=== PATIENT | male | born 1955 ===

== ENCOUNTER 2023-04-15 05:04 | Day surgery (SDC) | payer OTHER ==
[2023-04-10 18:09] VITALS: BMI 24.7
[~2023-04-15 05:04] MED LIST: ceFAZolin SODIUM 1 GM VIAL IVPB ONE
[2023-04-15] MEDS ORDERED: ELECTROLYTE-148 SOLN 1,000 ML IV SCH (10:30)
[2023-04-15] MEDS ORDERED: PROPOFOL 20 ML ONE (10:38)
[2023-04-15] MEDS ORDERED: MIDAZOLAM HCL 2 MG/2 ML SINGLE DOSE VIAL ONE (10:38)
[2023-04-15] MEDS ORDERED: GLYCOPYRROLATE 0.2 MG/1 ML VIAL ONE (10:46)
[2023-04-15] MEDS ORDERED: ceFAZolin SODIUM 1 GM VIAL IVPB ONE (10:50)
[2023-04-15] MEDS ORDERED: ceFAZolin SODIUM 1 GM VIAL ONE (10:50)
[2023-04-15] MEDS ORDERED: ONDANSETRON 4 MG/2 ML VIAL IVPUSH PRN (11:19)
[2023-04-15] MEDS ORDERED: LACTATED RINGERS SOLUTION 1,000 ML IV SCH (11:30)
[2023-04-15] MEDS ORDERED: oxyCODONE HCL 5 MG TABLET ONE (16:14)
[2023-04-15] MEDS ORDERED: oxyCODONE HCL 5 MG TABLET PO ONE (16:15)
[2023-04-15] MEDS ORDERED: ACETAMINOPHEN 325 MG TABLET (FP) PO PRN (17:55)
[2023-04-15 18:00] VITALS: RESP 20
[2023-04-15] MEDS: oxyCODONE HCL 5 MG TABLET PO PRN (21:48)
[2023-04-16 02:32] LABS: BASO % 0.3 % (0-2.0); EOS % 0.4 % (0-4.5); HEMATOCRIT 40.4 % (35.4-49); HEMOGLOBIN 13.8 GM/dL (11.7-16.9); LYMPH % 11.9 % (8-40); MCH 30.3 pg (25.7-33.7); MCHC 34.3 g/dl (32.0-35.9); MEAN CELL VOLUME 88.6 fl (80-96); MEAN PLT VOLUME 9.6 fl (7.5-11.1); NEUT % 78.4 % (42.8-82.8); PLATELET COUNT 157 10^3/uL (134-434); RBC 4.56 M/mm3 (4.00-5.60); RDW 12.8 % (11.9-15.9); WHITE BLOOD COUNT 10.6 K/mm3 (4.0-10.0)
[2023-04-16 02:33] LABS: POTASSIUM 4.4 mmol/L (3.5-5.1)
[2023-04-16 02:36] LABS: ALBUMIN 3.4 g/dl (3.4-5.0); BLOOD UREA NITROGEN 13.8 mg/dL (7-18); CALCIUM 9.1 mg/dL (8.5-10.1)
[2023-04-16 02:37] LABS: MAGNESIUM 1.6 mg/dL (1.8-2.4)
[2023-04-16 02:39] LABS: CREATININE 1.3 mg/dL (0.55-1.3); PHOSPHOROUS 2.6 mg/dL (2.5-4.9)
[2023-04-16] MEDS ORDERED: MAGNESIUM 2GM/50ML STERILE WATER IVPB IVPB ONE (03:58)
[2023-04-16] MEDS: oxyCODONE HCL 5 MG TABLET PO PRN (06:42)
[2023-04-16] MEDS ORDERED: TAMSULOSIN HCL 0.4 MG CAP PO SCH (10:00)
[2023-04-16] MEDS ORDERED: ROSUVASTATIN CA 10 MG TABLET PO SCH (10:00)
[2023-04-16 10:17] LABS: HEMATOCRIT 38.9 % (35.4-49); HEMOGLOBIN 13.6 GM/dL (11.7-16.9); MCH 30.8 pg (25.7-33.7); MCHC 34.9 g/dl (32.0-35.9); MEAN CELL VOLUME 88.4 fl (80-96); MEAN PLT VOLUME 9.3 fl (7.5-11.1); PLATELET COUNT 149 10^3/uL (134-434); RDW 12.5 % (11.9-15.9); WHITE BLOOD COUNT 9.8 K/mm3 (4.0-10.0)
[2023-04-16 10:42] LABS: POTASSIUM 4.6 mmol/L (3.5-5.1)
[2023-04-16 10:51] LABS: BLOOD UREA NITROGEN 12.9 mg/dL (7-18); MAGNESIUM 2.1 mg/dL (1.8-2.4)
[2023-04-16 10:55] LABS: CREATININE 1.2 mg/dL (0.55-1.3); PHOSPHOROUS 2.6 mg/dL (2.5-4.9)
[2023-04-16 12:01] VITALS: BP 133/68; PULSE 55; TEMP 97.8
[2023-04-17] MEDS ORDERED: TAMSULOSIN HCL 0.4 MG CAP PO SCH (08:30)
[2023-04-17] MEDS ORDERED: ROSUVASTATIN CA 10 MG TABLET PO SCH (22:00)
== END 2023-04-16 12:50 | disposition home or self-care (01) ==
LOC: SUATTDRO 05:04 → JASUSAT 05:04 → JASU-SURG 05:04 → J8W 17:42 → JASUSAT 04-16 12:50
PROVIDERS: ATTEND Nurse Practitioner Family
PROC: 0T7D8DZ Dilation of Urethra with Intraluminal Device, Via Natural or Artificial Opening Endoscopic (ICD-10-PCS; principal; 2023-04-15 09:30)
DX: N40.1 Benign prostatic hyperplasia with lower urinary tract symptoms (principal); N13.9 Obstructive and reflux uropathy, unspecified
CPT/HCPCS: C9740; L8699; 36415; 80048; 80053; 83735; 84100; 85025; 85027; 86850; 86900; 86901; 94760